=== PATIENT | female | born 1975 | race Caucasian/White ===

== ENCOUNTER 2018-06-09 15:26 | Outpatient (REF) | payer BC, SELFPAY ==
--- NOTE | 2018-06-09 14:30 | PAPFT_PTH ---
PATIENT: Heriberto Hearn LOC: [facility] U#:[id number] AGE/SX: 43/F ROOM: RE06/09/[address]: Tiki Daigle : 1975 BED: DIS: 06/09/2018 SPEC #: [id number] RECD: 06/10/18 12:56 STATUS: SALBADOR RERayna #: [id number] GUEVARA: 06/09/18 14:[address]: Tiki Daigle DEPT: [facility] Cytology RECD BY: Sydney Michele Tissues: 1 - CX/ENDOCX FOR PAP SMEARS Procedures: PAP THIN PREP/[facility] Screening HPV DNA PROBE Comments: [id number]
== END 2018-06-09 15:46 ==
LOC: NCHCN 15:26
PROVIDERS: PCP Registered Nurse; Visit Provider Registered Nurse
DX: Z12.4 Encounter for screening for malignant neoplasm of cervix (principal); Z11.51 Encounter for screening for human papillomavirus (HPV)
CPT/HCPCS: 88142; 87624

== ENCOUNTER 2018-11-06 14:13 | Outpatient (REF) | payer BC, SELFPAY | END 2018-11-06 14:33 | LOC: NCHCN 14:13 | PROVIDERS: PCP Registered Nurse; Visit Provider Registered Nurse | DX: N39.0 Urinary tract infection, site not specified (principal) | CPT/HCPCS: 87086 ==

== ENCOUNTER 2022-04-13 16:13 | Outpatient (REF) | payer MEDICAID, SELFPAY ==
[2022-04-13 16:49] LABS: HCT 40.1 % (36.0-46.0); MCH 28.7 pg (27.0-33.0); MCHC 32.4 % (32.0-36.0); MCV 89 fL (80-95); MPV 10.4 fL (8.0-11.0); Platelet Count 336 10^3/uL (130-400); RBC 4.53 10^6/uL (3.93-5.22); RDW-SD 41.8 fL; WBC 7.84 10^3/uL (4.4-10.8)
[2022-04-13 17:24] LABS: ALT 14 U/L (14-59); AST 15 U/L (15-37); Albumin 4.2 g/dL (3.4-5.0); Alkaline Phosphatase 55 U/L (46-116); Anion Gap 8.2 mmol/L (3-11); BUN 13 mg/dL (7-18); Bilirubin, Total 0.6 mg/dL (0.2-1.0); CO2 29.8 mmol/L (21.0-32.0); CREATININE 0.9 mg/dL (0.55-1.02); Calcium 9.3 mg/dL (8.5-10.1); Chloride 103 mmol/L (98-107); Estimated GFR 79.85 (mL/min/1.73m2); Glucose 80 mg/dL (74-106); Potassium 3.9 mmol/L (3.5-5.1); Sodium 141 mmol/L (136-145); TSH (W/Ref FT4) 36.84 uIU/mL (0.36-3.74); Total Protein 7.6 g/dL (6.4-8.2)
[2022-04-13 17:54] LABS: FREE T4 0.51 ng/dL (0.76-1.46)
== END 2022-04-13 16:14 | disposition home or self-care (01) ==
LOC: NCHCN 16:13
PROVIDERS: PCP Registered Nurse; Visit Provider Family Medicine
DX: Z13.29 Encounter for screening for other suspected endocrine disorder (principal); Z13.0 Encounter for screening for diseases of the blood and blood-forming organs and certain disorders involving the immune mechanism; Z13.228 Encounter for screening for other metabolic disorders; Z00.00 Encounter for general adult medical examination without abnormal findings
CPT/HCPCS: 80053; 85027; 84439; 84443

== ENCOUNTER 2022-06-14 11:07 | Outpatient (REF) | payer MEDICAID, SELFPAY ==
[2022-06-14 14:42] LABS: TSH 0.04 uIU/mL (0.36-3.74)
[2022-06-14 15:09] LABS: FREE T4 1.44 ng/dL (0.76-1.46)
== END 2022-06-14 11:08 | disposition home or self-care (01) ==
LOC: NCHCN 11:07
PROVIDERS: PCP Registered Nurse; Visit Provider Family Medicine
DX: E03.9 Hypothyroidism, unspecified (principal)
CPT/HCPCS: 84439; 84443

== ENCOUNTER 2022-09-19 11:19 | Outpatient (REF) | payer SELFPAY ==
[2022-09-19 16:21] LABS: TSH (W/Ref FT4) 1.61 uIU/mL (0.36-3.74)
== END 2022-09-19 11:20 | disposition home or self-care (01) ==
LOC: NCHCN 11:19
PROVIDERS: PCP Registered Nurse; Visit Provider Family Medicine
DX: E03.9 Hypothyroidism, unspecified (principal)
CPT/HCPCS: 84443

== ENCOUNTER 2023-04-19 11:08 | Outpatient (REF) | payer OTHER, SELFPAY ==
--- NOTE | 2023-04-19 10:00 | PAPFT_PTH ---
PATIENT: Heriberto Hearn LOC: [facility] U#:[id number] AGE/SX: 48/F ROOM: RE04/19/[address]: Devora Ramirez : 1975 BED: DIS: 04/19/2023 SPEC #: [id number] RECD: 04/19/23 14:59 STATUS: SALBADOR REQ #: [id number] GUEVARA: 04/19/23 10:[address]: Devora Ramirez DEPT: [facility] Cytology RECD BY: Sydney Michele ENTERED: 04/19/23 14:59 SP TYPE: PAPFT OTHR DR: Tiki Daigle Tissues: 1 - CX/ENDOCX FOR PAP SMEARS Procedures: PAP THIN PREP/[facility] Screening HPV DNA PROBE Comments: [id number] (CHLAMYDIA/GC)
--- OUTSIDE RECORDS SUMMARY | 2023-04-19 11:19 | XMS_ITS | CCD ---
Author Name Unknown Address [address] [place] [address] [id number] Organization Unknown Address [address] [place] [address] [phone] Care Team Providers Care Second Ride Fare Collector Name Role Phone ERIC FERNANDEZAH Danny Attending Physician [phone] Vital Signs Vital Sign Value Unit Date/Time Recent/Initial ? BP Systolic 114 mmHg 03/25/2023 14:04 Initial VS BP Diastolic 71 mmHg 03/25/2023 14:04 Initia l VS Respiratory Rate 16 bpm 03/25/2023 14:04 In itial VS Heart Rate 63 bpm 03/25/2023 14:04 Initial VS O2 % BldC Oximetry 96 % 03/25/2023 14:04 Initial VS Body Temperature 36.3 degrees 03/25/2023 14:04 In itial VS BP Systolic 120 mmHg 03/25/2023 14:07 Most Re cent VS BP Diastolic 71 mmHg 03/25/2023 14:07 Most R ecent VS Respiratory Rate 16 bpm 03/25/2023 14:[address] Recent VS Heart Rate 64 bpm 03/25/2023 14:07 Most Rec ent VS O2 % BldC Oximetry 96 % 03/25/2023 14:07 Most Recent VS Body Temperature 36 degrees 03/25/2023 14:[address] Recent VS Allergies Unknown or Not Available. Procedures Procedure Code Procedure Type Date Colonoscopy Flx Dx w/Collj Spec When Pfrmd 42527 CPT 03/25/2023 History of Immunizations Unknown or Not Available. Problems Unknown or Not Available. Results Unknown or Not Available. Active Medications Unknown or Not Available. Medications Administered During Visit Unknown or Not Available. Encounters Encounter Diagnosis Diagnosis Code Start Date Encounter for screening for malignant neoplasm o f colon [id number] 03/25/2023 Social History Unknown or Not Available. Patient Decision Aids Unknown or Not Available. Discharge Instructions You were admitted to [facility] on 03/25/2023 12:36 with a principal diagnosis of Encounter for screening for malignant neoplasm of colon You had the following procedures done:Colonoscopy Flx Dx w/Collj Spec When Pfrmd You were discharged from [facility] on 03/26/2023 08:44 Should you have any questions prior to discharge, please contact a member of your healthcare team. If you have left the hospital and have any questions, please contact your primary care physician. Chief Complaint and Reason For Visit Unknown or Not Available. Function Status Unknown or Not Available. Plan of Care Unknown or Not Available. Referral/Transition of Care Unknown or Not Available.
--- OUTSIDE RECORDS SUMMARY | 2023-04-19 11:20 | XMS_ITS | CCD ---
Author Name Unknown Address [address] [place] [address] [phone] Organization Unknown Address [address] [place] [address] [phone] Care Team Providers Care Foster Care Social Worker Name Role Phone ERIC FERNANDEZAH Danny Attending Physician [phone] Vital Signs Unknown or Not Available. Allergies Unknown or Not Available. Procedures Unknown or Not Available. History of Immunizations Unknown or Not Available. Problems Unknown or Not Available. Results Unknown or Not Available. Active Medications Unknown or Not Available. Medications Administered During Visit Unknown or Not Available. Encounters Encounter Diagnosis Diagnosis Code Start Date Screening for malignant neoplasm of colon [id number] 03/25/2023 Social History Unknown or Not Available. Patient Decision Aids Unknown or Not Available. Discharge Instructions You were admitted to [facility] on 03/25/2023 08:30 with a principal diagnosis of Encounter for screening for malignant neoplasm of colon You were discharged from [facility] on 03/26/2023 08:30 Should you have any questions prior to [...]
[2023-04-19 16:11] LABS: TSH (W/Ref FT4) 0.23 uIU/mL (0.36-3.74)
[2023-04-19 16:59] LABS: FREE T4 1.23 ng/dL (0.76-1.46)
[2023-04-22 15:25] LABS: Chlamydia Result Negative (Negative); GC Result Negative (Negative)
== END 2023-04-19 11:09 | disposition home or self-care (01) ==
LOC: NCHCN 11:08
PROVIDERS: PCP Registered Nurse; Visit Provider Family Medicine
DX: E03.9 Hypothyroidism, unspecified (principal); Z01.419 Encounter for gynecological examination (general) (routine) without abnormal findings
CPT/HCPCS: 87491; 87591; 88142; 84439; 84443; 87624

== ENCOUNTER 2023-07-12 18:11 | Outpatient (REF) | payer OTHER, SELFPAY ==
[2023-07-12 22:18] LABS: TSH 0.76 uIU/Ml (0.36-3.74)
== END 2023-07-12 18:12 | disposition home or self-care (01) ==
LOC: NCHCN 18:11
PROVIDERS: PCP Registered Nurse; Referring Provider Family Medicine; Visit Provider Family Medicine
DX: E03.9 Hypothyroidism, unspecified (principal)
CPT/HCPCS: 84443

== ENCOUNTER 2024-04-27 10:24 | Outpatient (REF) | payer OTHER, SELFPAY ==
[2024-04-27 15:17] LABS: Abs Immature Grans 0.02 10^3/uL (0.0-0.06); Absolute Basophil Count 0.04 10^3/uL (0.0-0.2); Absolute Eosinophil Count 0.08 10^3/uL (0.0-0.7); Absolute Monocyte Count 0.46 10^3/uL (0.1-0.8); Absolute Neutrophil Count 4.87 10^3/uL (1.2-6.7); Basophils % 0.6 %; Eosinophils % 1.1 %; HCT 42.3 % (36.0-46.0); HGB 14.1 g/dL (11.2-15.7); Immature Grans % 0.3 %; Lymphocytes % 23.7 %; MCH 29.1 pg (27.0-33.0); MCHC 33.3 % (32.0-36.0); MCV 87 fL (80-95); MPV 10.6 fL (8.0-11.0); Monocytes % 6.4 %; Neutrophils % 67.9 %; Platelet Count 356 10^3/uL (130-400); RBC 4.85 10^6/uL (3.93-5.22); RDW 12.5 % (11.7-14.6); RDW-SD 39.8 fL; WBC 7.17 10^3/uL (4.4-10.8)
[2024-04-27 15:49] LABS: Anion Gap 4.4 mmol/L (3-11); BUN 13 mg/dL (7-18); CO2 32.6 mmol/L (21.0-32.0); CREATININE 0.9 mg/dL (0.55-1.02); Calcium 9.3 mg/dL (8.5-10.1); Chloride 105 mmol/L (98-107); Estimated GFR 78.86 (mL/min/1.73m2); Glucose 71 mg/dL (74-106); Sodium 142 mmol/L (136-145); TSH (W/Ref FT4) 0.86 uIU/mL (0.36-3.74)
== END 2024-04-27 10:25 | disposition home or self-care (01) ==
LOC: NCHCN 10:24
PROVIDERS: PCP Registered Nurse; Visit Provider Family Medicine
DX: E03.9 Hypothyroidism, unspecified (principal); R53.83 Other fatigue
CPT/HCPCS: 80048; 84443; 85025